=== PATIENT | male | born 1975 | race Caucasian/White ===

== ENCOUNTER 2018-09-24 09:55 | Emergency (ER) | payer OTHER ==
[2018-09-24 10:02] VITALS: BP 129/99
--- NOTE | 2018-09-24 10:03 | EDPHY ---
H & P Stated Complaint: IVAN, n/v Time Seen by Provider: 09/24/18 10:03 - Personal History Current Tetanus/Diphtheria Vaccine: Yes Current Tetanus Diphtheria and Acellular Pertussis (TDAP): Yes - Medical/Surgical History Hx Asthma: No Hx Chronic Respiratory Disease: No Hx Diabetes: No Hx Cardiac Disease: No Hx Renal Disease: No Hx Cirrhosis: No Hx Alcoholism: No Hx HIV/AIDS: No Hx Splenectomy or Spleen Trauma: No - Social History Smoking Status: Never smoked Constitutional: Initial Vital Signs Temperature (C) 36.5 C 09/24/18 10:00 Heart Rate 72 09/24/18 10:00 Respiratory Rate 20 09/24/18 10:00 Blood Pressure 129/99 H 09/24/18 10:00 O2 Sat (%) 99 09/24/18 10:00 O2 Delivery Mode Room Air Allergies/Adverse Reactions: No Known Allergies Allergy (Unverified 09/24/18 10:00) Home Medications: Medication Instructions Recorded Ibuprofen 09/24/18 Tylenol 09/24/18 Medical Decision Making ED Course/Re-evaluation: CHIEF COMPLAINT: Headache, vomiting HISTORY OF PRESENT ILLNESS: The patient is a 43 y/o male complaining of a severe left-sided headache and vomiting today. Around 2 weeks ago he developed sinus pressure, but this gradually improved. Today while driving to work, he developed sinus pressure that worsened more drastically than in the past. He then developed a throbbing behind his left eye and had three episodes of vomiting. He took Advil which did not improve his symptoms. He denies a history of migraines or recent injury. No fever, body aches, lightheadedness, chest pain, heart palpitations, shortness of breath, cough, abdominal pain, urinary or bowel complaints, numbness, paresthesias. REVIEW OF SYSTEMS: A comprehensive 10 system review of systems is otherwise negative aside from elements mentioned in the history of present illness and medical decision making. PHYSICAL EXAM: HR, BP, O2 Sat, RR. Temp noted General Appearance: Alert, well hydrated, appropriate, and non-toxic appearing. Head: Left-sided facial and sinus tenderness to palpation. Atraumatic without scalp tenderness or obvious injury Eyes: Photophobic, Pupils equal, round, reactive to light and accommodation, EOMI, no trauma, no injection. Ears: Clear bilaterally, no perforation, normal landmarks Nose: Atraumatic, no rhinorrhea, clear. Throat: There is no erythema or exudates, no lesions, normal tonsils, mucus membranes moist. Neck: Supple, 2+ carotid upstroke, nontender, no lymphadenopathy. Respiratory: No retractions, no distress, no wheezes, and no accessory muscle use. Lungs are clear to auscultation bilaterally. Cardiovascular: Regular rate and rhythm, no murmurs, rubs, or gallops. Bilateral carotid, radial, dorsalis pedis, and posterior tibial pulses intact. Good capillary refill all extremities. Gastrointestinal: Abdomen is soft, nontender, non-distended, no masses, no rebound, no guarding, no peritoneal signs. Musculoskeletal: Normal active ROM of all extremities, atraumatic. Neurological: Alert, appropriate, and interactive. The patient has normal DTRs and non-focal cranial nerves, motor, sensory, and cerebellar exam. Skin: No rashes, good turgor, no nodules on palpation. Past medical history: Denies Past surgical history: Denies Family history: Denies Social history: Lives in [place], employed, does not abuse tobacco, drugs, or alcohol DIAGNOSTICS/PROCEDURES/CRITICAL CARE TIME: Not indicated. DIFFERENTIAL DIAGNOSIS: The differential diagnosis for the patient's headache included but was not limited to subarachnoid hemorrhage, migraine headache, tension headache and infectious causes such as meningitis, pharyngitis and sinusitis. MEDICAL DECISION MAKING: The patient is a 43 y/o male presenting with a severe left-sided headache and vomiting today. Today while driving to work, he developed sinus pressure that worsened more drastically than in the past. He then developed a throbbing behind his left eye and had three episodes of vomiting. He denies a history of migraines or recent injury. On exam he has tenderness along the left facial bones and sinuses as well as photophobia. Head CT and labs ordered as patient does not have a history of migraines. Migraine cocktail administered including Reglan, Toradol, and Solu-Medrol. 1020: I reviewed patient's I-Stat, his BGL is 423. HGA1C ordered. He denies a history of diabetes and last ate at 07:00, 3.5 hours ago. 1036: Reassessed patient, he is unsure if he wants the head CT. I had a very extensive conversation with the patient as to why he needs a head CT as this is his first severe headache. After our discussion he would like to forego the CT as he is feeling better after medications. I have advised him to follow up with his PCP and talk about the headache as well as his hyperglycemia. Return precautions provided; patient is comfortable with this plan. - Data Points Laboratory Results: Laboratory Results 09/24/18 10:10 09/24/18 10:10 09/24/18 09/24/18 09/24/18 10:12 10:10 10:10 WBC RBC Hgb POC Hgb 15.6 gm/dL gm/dL (13.7-17.5) Hct POC Hct 46 % % (40-51) MCV MCH MCHC RDW Plt Count MPV Neut % (Auto) Lymph % (Auto) Woodruff % (Auto) Eos % (Auto) Baso % (Auto) Nucleat RBC Rel Count Absolute Neuts (auto) Absolute Lymphs (auto) Absolute Monos (auto) Absolute Eos (auto) Absolute Basos (auto) Absolute Nucleated RBC Immature Gran % Immature Gran # POC Sodium 136 mEq/L mEq/L (135-145) Sodium 134 mEq/L L mEq/L (135-145) POC Potassium 3.9 mEq/L mEq/L (3.3-5.0) Potassium 4.4 mEq/L mEq/L (3.5-5.2) POC Chloride 100 mEq/L mEq/L (97-110) Chloride 101 mEq/L mEq/L (97-110) Carbon Dioxide 19 mEq/l L mEq/l (22-31) POC Total CO2 20 mEq/L L mEq/L (22-31) Anion Gap 14 mEq/L mEq/L (6-14) POC BUN 17 mg/dL mg/dL (7-23) BUN 17 mg/dL mg/dL (7-23) Creatinine 0.7 mg/dL mg/dL (0.7-1.3) POC Creatinine 0.7 mg/dL mg/dL (0.7-1.3) Estimated GFR > 60 Glucose 410 mg/dL H mg/dL (70-100) POC Glucose 423 mg/dL H mg/dL (70-100) Hemoglobin A1c 11.1 % H % (4.0-6.0) Estim Average Glucose 272 mg/dL H mg/dL (68-126) Calcium 9.7 mg/dL mg/dL (8.5-10.4) 09/24/18 10:10 WBC 8.95 10^3/uL 10^3/uL (3.80-9.50) RBC 5.35 10^6/uL 10^6/uL (4.40-6.38) Hgb 15.7 g/dL g/dL (13.7-17.5) POC Hgb Hct 43.3 % % (40.0-51.0) POC Hct MCV 80.9 fL L fL (81.5-99.8) MCH 29.3 pg pg (27.9-34.1) MCHC 36.3 g/dL g/dL (32.4-36.7) RDW 12.2 % % (11.5-15.2) Plt Count 368 10^3/uL 10^3/uL (150-400) MPV 9.4 fL fL (8.7-11.7) Neut % (Auto) 51.5 % % (39.3-74.2) Lymph % (Auto) 38.9 % % (15.0-45.0) Woodruff % (Auto) 7.7 % % (4.5-13.0) Eos % (Auto) 1.2 % % (0.6-7.6) Baso % (Auto) 0.4 % % (0.3-1.7) Nucleat RBC Rel Count 0.0 % % (0.0-0.2) Absolute Neuts (auto) 4.60 10^3/uL 10^3/uL (1.70-6.50) Absolute Lymphs (auto) 3.48 10^3/uL H 10^3/uL (1.00-3.00) Absolute Monos (auto) 0.69 10^3/uL 10^3/uL (0.30-0.80) Absolute Eos (auto) 0.11 10^3/uL 10^3/uL (0.03-0.40) Absolute Basos (auto) 0.04 10^3/uL 10^3/uL (0.02-0.10) Absolute Nucleated RBC 0.00 10^3/uL 10^3/uL (0-0.01) Immature Gran % 0.3 % % (0.0-1.1) Immature Gran # 0.03 10^3/uL 10^3/uL (0.00-0.10) POC Sodium Sodium POC Potassium Potassium POC Chloride Chloride Carbon Dioxide POC Total CO2 Anion Gap POC BUN BUN Creatinine POC Creatinine Estimated GFR Glucose POC Glucose Hemoglobin A1c Estim Average Glucose Calcium Medications Given: Discontinued Medications Ketorolac Tromethamine (Toradol) 30 mg IVP EDNOW ONE Stop: 09/24/18 10:08 Last Admin: 09/24/18 10:13 Dose: 30 mg Methylprednisolone Sodium Succinate (Solu-Medrol) 125 mg IVP EDNOW ONE Stop: 09/24/18 10:08 Last Admin: 09/24/18 10:11 Dose: 125 mg Metoclopramide HCl (Reglan Injection) 10 mg IVP EDNOW ONE Stop: 09/24/18 10:08 Last Admin: 09/24/18 10:14 Dose: 10 mg Point of Care Test Results: Chemistry 09/24/18 10:12 POC Sodium 136 mEq/L mEq/L (135-145) POC Potassium 3.9 mEq/L mEq/L (3.3-5.0) POC Chloride 100 mEq/L mEq/L (97-110) POC Total CO2 20 mEq/L L mEq/L (22-31) POC BUN 17 mg/dL mg/dL (7-23) POC Creatinine 0.7 mg/dL mg/dL (0.7-1.3) POC Glucose 423 mg/dL H mg/dL (70-100) ISTAT H&H 09/24/18 10:12 POC Hgb 15.6 gm/dL gm/dL (13.7-17.5) POC Hct 46 % % (40-51) Departure - Departure Disposition: Home, Routine, Self-Care Clinical Impression: Hyperglycemia Headache Qualifiers: Headache type: unspecified Headache chronicity pattern: acute headache Intractability: intractable Qualified Code(s): R51 - Headache Sinusitis Qualifiers: Sinusitis location: unspecified location Chronicity: acute Recurrence: non- recurrent Qualified Code(s): J01.90 - Acute sinusitis, unspecified Condition: Good Instructions: Sinusitis (ED), Migraine Headache (ED), Nondiabetic Hyperglycemia (ED) Additional Instructions: 1. Follow-up with your primary care physician within 72 hours. Make sure to discuss your headache as well as your high blood glucose level of 423. 2. Return to the emergency department immediately for recurrence of headache, nausea, vomiting, numbness, weakness, neck pain, fever or other concerns. 3. Use Tylenol and/or ibuprofen as directed. Referrals: [facility],. [Clinic] - As per Instructions Report Scribed for: Karl Finn Report Scribed by: Caitie Haro Date of Report: 09/24/18 Time of Report: 10:04
[2018-09-24] MEDS ORDERED: methylPREDNISolone SOD SUCC 125 MG/2 ML VIAL IVP ONE (10:07)
[2018-09-24] MEDS ORDERED: KETOROLAC 30 MG/1 ML SDV IVP ONE (10:07)
[2018-09-24] MEDS ORDERED: METOCLOPRAMIDE 10 MG/2 ML VIAL IVP ONE (10:07)
[2018-09-24 10:21] LABS: PLATELET COUNT 368 10^3/uL (150-400)
== END 2018-09-24 10:48 | disposition home or self-care (01) ==
DX: J01.90 Acute sinusitis, unspecified (principal); R73.9 Hyperglycemia, unspecified
CPT/HCPCS: 82435-PO; 82565-PO; 82947-PO; 84132-PO; 84295-PO; 84520-PO; 85014-ER; 96374; J1885; J2765; J2930